=== PATIENT | male | born 1955 | race Caucasian/White ===

== ENCOUNTER 2018-04-01 09:44 | Emergency (ER) | payer MEDICAID, OTHER ==
[~2018-04-01] VITALS: Ht 172.7 cm; Wt 86.0 kg
[~2018-04-01 09:44] MED LIST: AMLO10TA PO; ASPI-1265 PO; ATOR40TA PO; CIPR-230 PO; CLON0.5T9 PO; DOCU100C23 PO; HYDR-569 PO; LOSA100T28 PO; METR500T4 PO; VILA10TA PO
[2018-04-01] MEDS ORDERED: LIDOcaine 1.5% w/epinephrine 1:200,000 5ml ampul IJ ONE (11:00)
[2018-04-01] MEDS ORDERED: HYDROcodone/acetaminophen 5mg/325mg tablet PO ONE (12:35)
[2018-04-01] MEDS ORDERED: ketorolac tromethamine 15mg/ml inj. IM ONE (12:35)
[2018-04-01 12:52] VITALS: BP 145/98
== END 2018-04-01 12:53 | disposition home or self-care (01) ==
LOC: ER 09:45
DX: S00.83XA Contusion of other part of head, initial encounter (principal); I25.10 Atherosclerotic heart disease of native coronary artery without angina pectoris; E78.00 Pure hypercholesterolemia, unspecified; I10 Essential (primary) hypertension; I25.2 Old myocardial infarction; E11.9 Type 2 diabetes mellitus without complications; F17.210 Nicotine dependence, cigarettes, uncomplicated; Z98.890 Other specified postprocedural states; Z87.442 Personal history of urinary calculi; Z90.49 Acquired absence of other specified parts of digestive tract; Z85.9 Personal history of malignant neoplasm, unspecified; Z60.2 Problems related to living alone; Z88.0 Allergy status to penicillin; Z79.82 Long term (current) use of aspirin; Z79.899 Other long term (current) drug therapy; Y08.89XA Assault by other specified means, initial encounter; Y93.89 Activity, other specified; Y92.89 Other specified places as the place of occurrence of the external cause; Y99.8 Other external cause status
CPT/HCPCS: 70450; 96372; 99284; J1885

== ENCOUNTER 2021-12-11 13:26 | Emergency (ER) | payer MEDICARE, MEDICAID ==
[~2021-12-11] VITALS: Ht 172.7 cm; Wt 81.8 kg
[~2021-12-11 13:26] MED LIST changes: +CIPR-202 PO; -CIPR-230 PO; +CLON-567 PO; -CLON0.5T9 PO; +DOCU-273 PO; -DOCU100C23 PO; +HYDR-4383 PO; -HYDR-569 PO; -LOSA100T28 PO; +LOSA100T57 PO; +METR-159 PO; -METR500T4 PO
[2021-12-11 14:51] LABS: BASOPHILS # (AUTO) 0.1 X10'3 (0-0.2); BASOPHILS % (AUTO) 0.7 % (0-1); EOSINOPHILS # (AUTO) 0.2 X10'3 (0-0.9); EOSINOPHILS % (AUTO) 3.2 % (0-6); HEMATOCRIT 45.6 % (42.0-52.0); HEMOGLOBIN 15.3 g/dl (14.0-17.9); LYMPHOCYTES # (AUTO) 1.6 X10'3 (1.1-4.8); LYMPHOCYTES % (AUTO) 20.8 % (21-51); MEAN CORPUSCULAR HEMOGLOBIN 30.9 PG (27.0-31.0); MEAN CORPUSCULAR HGB CONC 33.7 g/dL (33.0-36.5); MEAN CORPUSCULAR VOLUME 91.8 FL (78-98); MEAN PLATELET VOLUME 7.8 FL (7.4-10.4); MONOCYTES # (AUTO) 0.7 X10'3 (0-0.9); MONOCYTES % (AUTO) 8.6 % (2-12); NEUTROPHILS # (AUTO) 5.1 X10'3 (1.8-7.7); NEUTROPHILS % (AUTO) 66.7 % (42-75); PLATELET COUNT 221 X10'3 (140-440); RED BLOOD COUNT 4.97 X10'6 (4.70-6.10); RED CELL DISTRIBUTION WIDTH 13.6 % (11.5-14.5); WHITE BLOOD COUNT 7.7 X10'3 (4.5-11.0)
[2021-12-11 15:17] LABS: ALANINE AMINOTRANSFERASE 17 U/L (12-78); ALBUMIN 4.1 G/DL (3.4-5.0); ALBUMIN/GLOBULIN RATIO 1.1 (1.1-1.5); ALKALINE PHOSPHATASE 85 IU/L (46-116); ANION GAP 9 (8-16); ASPARTATE AMINO TRANSFERASE 17 U/L (10-37); BILIRUBIN,TOTAL 0.9 MG/DL (0.1-1.0); BLOOD UREA NITROGEN 18 MG/DL (7-18); BUN/CREATININE RATIO 18.8 (5.4-32.0); CALCIUM 8.6 MG/DL (8.5-10.1); CHLORIDE 105 MMOL/L (99-107); CREATININE 0.96 MG/DL (0.60-1.10); GLUCOSE 128 MG/DL (70-104); POTASSIUM 3.9 MMOL/L (3.5-5.1); SODIUM 140 MMOL/L (135-145); TOTAL PROTEIN 7.7 G/DL (6.4-8.2); eGFR 79 ML/MIN
[2021-12-11 15:18] LABS: MAGNESIUM 2.2 MG/DL (1.5-2.4)
[2021-12-11 16:26] LABS: D-DIMER 1.05 MG/L FEU (0-0.50)
[2021-12-11] MEDS ORDERED: iohexol 350MG/ML 100ml bottle IV ONE (16:50)
[2021-12-11] MEDS ORDERED: MELA1TAB28 PO (18:56)
[2021-12-11] MEDS ORDERED: HYDR-3686 PO (18:56)
[2021-12-11 19:47] VITALS: BP 153/100
== END 2021-12-11 19:49 | disposition home or self-care (01) ==
LOC: ER 13:27
DX: R06.02 Shortness of breath (principal); R05.9 Cough, unspecified; R09.81 Nasal congestion; R07.89 Other chest pain; I10 Essential (primary) hypertension; E11.9 Type 2 diabetes mellitus without complications; I25.2 Old myocardial infarction; I25.10 Atherosclerotic heart disease of native coronary artery without angina pectoris; E78.00 Pure hypercholesterolemia, unspecified; F12.90 Cannabis use, unspecified, uncomplicated; Z87.442 Personal history of urinary calculi; Z86.73 Personal history of transient ischemic attack (TIA), and cerebral infarction without residual deficits; Z88.0 Allergy status to penicillin; Z79.82 Long term (current) use of aspirin; Z79.899 Other long term (current) drug therapy; Z87.891 Personal history of nicotine dependence; Z20.822 Contact with and (suspected) exposure to COVID-19
CPT/HCPCS: 36415; 71045; 71275; 80053; 83605; 83735; 83880; 84145; 84484; 85025; 85379; 87040; 87635; 93005; 99285; C9803; Q9967